=== PATIENT | female | born 1990 | race Caucasian/White ===

== ENCOUNTER 2018-03-18 19:20 | Emergency (ER) | payer MEDICAID ==
[~2018-03-18] VITALS: Ht 162.6 cm; Wt 58.0 kg
[2018-03-18 19:41] VITALS: BP 121/83
[2018-03-18 20:49] LABS: BASOPHILS % (AUTO) 0.4 % (0-1); EOSINOPHILS # (AUTO) 0.2 X10'3 (0-0.9); EOSINOPHILS % (AUTO) 2.3 % (0-6); HEMATOCRIT 42.3 % (35.0-45.0); HEMOGLOBIN 14.6 g/dl (12.0-16.0); LYMPHOCYTES # (AUTO) 2.4 X10'3 (1.1-4.8); LYMPHOCYTES % (AUTO) 28.5 % (21-51); MEAN CORPUSCULAR HEMOGLOBIN 31.5 PG (27.0-31.0); MEAN CORPUSCULAR HGB CONC 34.6 % (33.0-36.5); MONOCYTES # (AUTO) 0.8 X10'3 (0-0.9); MONOCYTES % (AUTO) 9.9 % (2-12); NEUTROPHILS % (AUTO) 58.9 % (42-75); PLATELET COUNT 263 X10'3 (140-440); RED BLOOD COUNT 4.65 X10'6 (4.20-5.60); RED CELL DISTRIBUTION WIDTH 15.3 % (11.5-14.5); WHITE BLOOD COUNT 8.6 X10'3 (4.5-11.0)
[2018-03-18] MEDS ORDERED: LIDOcaine 1% 30ml preserv. free vial IJ STA (21:25)
[2018-03-18] MEDS ORDERED: HYDR-569 PO (21:46)
== END 2018-03-18 22:02 | disposition home or self-care (01) ==
LOC: ER 19:21
DX: S01.01XA Laceration without foreign body of scalp, initial encounter (principal); S09.90XA Unspecified injury of head, initial encounter; F17.200 Nicotine dependence, unspecified, uncomplicated; F12.10 Cannabis abuse, uncomplicated; R51 Headache; R42 Dizziness and giddiness; Y04.0XXA Assault by unarmed brawl or fight, initial encounter; Y93.89 Activity, other specified; Y92.099 Unspecified place in other non-institutional residence as the place of occurrence of the external cause; Y99.8 Other external cause status
CPT/HCPCS: 12001; 36415; 70450; 72125; 85025; 99285; J3490

== ENCOUNTER 2018-03-20 12:00 | Emergency (ER) | payer MEDICAID ==
[~2018-03-20] VITALS: Ht 157.5 cm; Wt 59.0 kg
[~2018-03-20 12:00] MED LIST: HYDR-569 PO
[2018-03-20 12:03] VITALS: BP 122/76
== END 2018-03-20 13:52 | disposition home or self-care (01) ==
LOC: ER 12:00
DX: R51 Headache (principal); R42 Dizziness and giddiness; R11.2 Nausea with vomiting, unspecified; F12.90 Cannabis use, unspecified, uncomplicated; Z79.899 Other long term (current) drug therapy
CPT/HCPCS: 99283